=== PATIENT | female | born 1980 | race Caucasian/White ===

== ENCOUNTER 2017-10-14 15:02 | Emergency (ER) | payer MEDICARE, MEDICAID ==
[~2017-10-14] VITALS: Ht 167.6 cm; Wt 143.1 kg
[~2017-10-14 15:02] MED LIST: ALBU8.5H8 INH; AMIT100T PO; CARB200T PO; CELE200C; CHOL2000 PO; CYCL10TA50; DIVA250T4 PO; HYDR25TA11 PO; LORA-446; NAPR250T6 PO; POTA10TA6; POTA25PA PO; VIT D
[2017-10-14 16:36] LABS: HEMATOCRIT 40.2 % (34.6-47.8); HEMOGLOBIN 13.3 g/dL (11.7-16.4); WHITE BLOOD COUNT 8.2 x10^3/uL (3.4-10)
[2017-10-14 16:45] LABS: BLOOD UREA NITROGEN 8 mg/dL (7-18)
[2017-10-14 16:50] LABS: RAPID INFLUENZA A Negative (Negative); RAPID INFLUENZA B Negative (Negative)
[2017-10-14 16:57] VITALS: BP 112/64
== END 2017-10-14 17:16 | disposition home or self-care (01) ==
LOC: ED 15:39
DX: J45.909 Unspecified asthma, uncomplicated (principal); J20.8 Acute bronchitis due to other specified organisms; B96.89 Other specified bacterial agents as the cause of diseases classified elsewhere; F32.9 Major depressive disorder, single episode, unspecified; G40.909 Epilepsy, unspecified, not intractable, without status epilepticus; G89.29 Other chronic pain; M54.9 Dorsalgia, unspecified; Z90.49 Acquired absence of other specified parts of digestive tract
CPT/HCPCS: 36415; 71010; 80048; 82040; 85025; 87400; 99285

== ENCOUNTER 2017-11-26 21:45 | Emergency (ER) | payer MEDICARE, MEDICAID ==
[~2017-11-26] VITALS: Ht 167.6 cm; Wt 130.0 kg
[2017-11-26 21:49] VITALS: BP 127/68
[2017-11-26] MEDS ORDERED: SODIUM CHLORIDE FLUSH 10ML SYR IVF ONE (22:00)
[2017-11-26 22:19] LABS: BASOPHILS # (AUTO) 0.03 x10^3/uL (0-0.1); BASOPHILS % (AUTO) 0 % (0-1); EOSINOPHILS # (AUTO) 0.17 x10^3/uL (0-0.4); EOSINOPHILS % (AUTO) 2 % (1-7); LYMPHOCYTES # (AUTO) 2.14 x10^3/uL (1-3.4); LYMPHOCYTES % (AUTO) 23 % (22-44); MD NO; MEAN CORPUSCULAR HEMOGLOBIN 29.4 pg (27.0-34.8); MEAN CORPUSCULAR HGB CONC 33.7 g/dL (32.4-35.8); MEAN CORPUSCULAR VOLUME 87.3 fL (80-100); MEAN PLATELET VOLUME 7.6 fL (7.4-10.4); MONOCYTES # (AUTO) 0.82 x10^3/uL (0.2-0.8); MONOCYTES % (AUTO) 9 % (2-9); NEUTROPHILS # (AUTO) 6.33 x10^3/uL (1.8-6.8); NEUTROPHILS % (AUTO) 67 % (42-75); PLATELET COUNT 263 x10^3/uL (130-400); RED BLOOD COUNT 4.67 x10^6/uL (3.82-5.3); RED CELL DISTRIBUTION WIDTH 14.6 % (9.6-15.2)
[2017-11-26 22:29] LABS: ALANINE AMINOTRANSFERASE 15 U/L (12-78); ANION GAP 12 mmol/L (5-15); CALCIUM 8.2 mg/dL (8.5-10.1); CHLORIDE 107 mmol/L (98-107); CREATININE 0.76 mg/dL (0.55-1.02)
[2017-11-26 22:32] LABS: ALKALINE PHOSPHATASE 78 U/L (45-117); BILIRUBIN,TOTAL 0.2 mg/dL (0.2-1.0); TOTAL PROTEIN 7.2 g/dL (6.4-8.2)
== END 2017-11-26 23:00 | disposition home or self-care (01) ==
LOC: ED 22:13
DX: G40.909 Epilepsy, unspecified, not intractable, without status epilepticus (principal); Z88.0 Allergy status to penicillin; Z90.49 Acquired absence of other specified parts of digestive tract; J45.909 Unspecified asthma, uncomplicated
CPT/HCPCS: 36415; 80053; 80307; 85025; 93005; 99285

== ENCOUNTER 2017-12-10 19:22 | Emergency (ER) | payer MEDICARE, MEDICAID ==
[~2017-12-10] VITALS: Ht 172.7 cm; Wt 110.0 kg
[2017-12-10] MEDS ORDERED: SODIUM CHLORIDE 0.9% 1,000ML IVBOLUS ONE (20:00)
[2017-12-10] MEDS ORDERED: SODIUM CHLORIDE FLUSH 10ML SYR IVF ONE (20:00)
[2017-12-10 20:09] LABS: BASOPHILS # (AUTO) 0.02 x10^3/uL (0-0.1); BASOPHILS % (AUTO) 0 % (0-1); EOSINOPHILS # (AUTO) 0.23 x10^3/uL (0-0.4); EOSINOPHILS % (AUTO) 3 % (1-7); LYMPHOCYTES # (AUTO) 1.38 x10^3/uL (1-3.4); LYMPHOCYTES % (AUTO) 16 % (22-44); MD NO; MEAN CORPUSCULAR HGB CONC 32.8 g/dL (32.4-35.8); MEAN CORPUSCULAR VOLUME 88.4 fL (80-100); MEAN PLATELET VOLUME 7.8 fL (7.4-10.4); MONOCYTES % (AUTO) 8 % (2-9); NEUTROPHILS # (AUTO) 6.63 x10^3/uL (1.8-6.8); NEUTROPHILS % (AUTO) 74 % (42-75); PLATELET COUNT 237 x10^3/uL (130-400); RED BLOOD COUNT 4.66 x10^6/uL (3.82-5.3); RED CELL DISTRIBUTION WIDTH 14.6 % (9.6-15.2)
[2017-12-10 20:17] LABS: ALANINE AMINOTRANSFERASE 17 U/L (12-78); ALBUMIN 3.6 g/dL (3.4-5.0); ANION GAP 9 mmol/L (5-15); CALCIUM 7.9 mg/dL (8.5-10.1); CHLORIDE 105 mmol/L (98-107); CREATININE 0.76 mg/dL (0.55-1.02)
[2017-12-10 20:21] LABS: ALKALINE PHOSPHATASE 83 U/L (45-117); BILIRUBIN,TOTAL 0.2 mg/dL (0.2-1.0); TOTAL PROTEIN 7.3 g/dL (6.4-8.2)
[2017-12-10 22:21] VITALS: BP 123/80
[2017-12-10 23:12] LABS: AMPHETAMINE SCREEN, URINE Negative (Negative); BARBITURATE SCREEN, URINE Negative (Negative); BENZODIAZEPINE SCREEN, URINE Negative (Negative); CANNABINOID SCREEN, URINE Negative (Negative); COCAINE SCREEN, URINE Negative (Negative); METHADONE SCREEN, URINE Negative (Negative); OPIATE SCREEN, URINE Negative (Negative)
== END 2017-12-10 22:22 | disposition home or self-care (01) ==
LOC: ED 19:40
DX: G40.309 Generalized idiopathic epilepsy and epileptic syndromes, not intractable, without status epilepticus (principal); J45.909 Unspecified asthma, uncomplicated; Z90.49 Acquired absence of other specified parts of digestive tract
CPT/HCPCS: 36415; 80053; 80164; 80307; 85025; 96360; 99284; J7030

== ENCOUNTER 2018-02-07 19:25 | Emergency (ER) | payer MEDICARE, MEDICAID ==
[~2018-02-07] VITALS: Ht 167.6 cm; Wt 145.9 kg
[2018-02-07 19:27] VITALS: BP 136/94
[2018-02-07] MEDS ORDERED: DEXAMETHASONE 4 MG TABLET PO STA (19:58)
[2018-02-07] MEDS ORDERED: DEXAMETHASONE 4 MG TABLET ONE (19:59)
== END 2018-02-07 21:03 | disposition home or self-care (01) ==
LOC: ED 20:45
DX: J20.8 Acute bronchitis due to other specified organisms (principal); B97.89 Other viral agents as the cause of diseases classified elsewhere; J45.909 Unspecified asthma, uncomplicated; E66.9 Obesity, unspecified
CPT/HCPCS: 71046; 99284

== ENCOUNTER 2018-03-13 17:56 | Emergency (ER) | payer MEDICAID, MEDICARE ==
[~2018-03-13] VITALS: Ht 167.6 cm; Wt 140.6 kg
[2018-03-13 18:25] VITALS: BP 129/87
[2018-03-13] MEDS ORDERED: ALBUTEROL SULFATE 2.5 MG/3 ML ONE (19:34)
[2018-03-13] MEDS ORDERED: IBUP200C5 PO (19:52)
[2018-03-13] MEDS ORDERED: CHOL100011 PO (19:53)
== END 2018-03-13 21:34 | disposition home or self-care (01) ==
LOC: ED 21:28
DX: J06.9 Acute upper respiratory infection, unspecified (principal); B34.9 Viral infection, unspecified; G40.909 Epilepsy, unspecified, not intractable, without status epilepticus; J45.909 Unspecified asthma, uncomplicated; F32.9 Major depressive disorder, single episode, unspecified; Z88.0 Allergy status to penicillin; Z88.2 Allergy status to sulfonamides; Z88.1 Allergy status to other antibiotic agents; Z88.8 Allergy status to other drugs, medicaments and biological substances
CPT/HCPCS: 71046; 93005; 94640; 99284

== ENCOUNTER 2018-04-16 19:04 | Emergency (ER) | payer MEDICARE ==
[~2018-04-16] VITALS: Ht 167.6 cm; Wt 139.5 kg
[~2018-04-16 19:04] MED LIST changes: +CHOL100011 PO; +IBUP200C5 PO
[2018-04-16 19:11] VITALS: BP 130/91
[2018-04-16] MEDS ORDERED: KETOROLAC 30 MG/1 ML ONE (20:12)
[2018-04-16] MEDS ORDERED: KETOROLAC 30 MG/1 ML IM ONE (20:30)
== END 2018-04-16 21:00 | disposition home or self-care (01) ==
LOC: ED 20:45
DX: M25.571 Pain in right ankle and joints of right foot (principal); M25.561 Pain in right knee; G40.909 Epilepsy, unspecified, not intractable, without status epilepticus; J45.909 Unspecified asthma, uncomplicated; F20.9 Schizophrenia, unspecified; X50.1XXA Overexertion from prolonged static or awkward postures, initial encounter; Y93.89 Activity, other specified; Y92.480 Sidewalk as the place of occurrence of the external cause; Y99.8 Other external cause status
CPT/HCPCS: 73564; 73610; 96372; 99284; J1885

== ENCOUNTER 2018-04-24 21:01 | Emergency (ER) | payer MEDICARE ==
[~2018-04-24] VITALS: Ht 167.6 cm; Wt 138.3 kg
[2018-04-24 22:18] LABS: MEAN CORPUSCULAR HGB CONC 33.5 g/dL (32.4-35.8); MEAN CORPUSCULAR VOLUME 89.8 fL (80-100); MEAN PLATELET VOLUME 7.7 fL (7.4-10.4); PLATELET COUNT 262 x10^3/uL (130-400); RED BLOOD COUNT 4.13 x10^6/uL (3.82-5.3); RED CELL DISTRIBUTION WIDTH 14.3 % (9.6-15.2)
[2018-04-24 22:28] LABS: ALBUMIN 3.3 g/dL (3.4-5.0); ANION GAP 8 mmol/L (5-15); CHLORIDE 109 mmol/L (98-107); CREATININE 0.74 mg/dL (0.55-1.02)
[2018-04-24 22:34] VITALS: BP 111/77
[2018-04-24 22:46] LABS: BASOPHILS # (AUTO) 0.05 x10^3/uL (0-0.1); BASOPHILS % (AUTO) 0 % (0-1); EOSINOPHILS # (AUTO) 0.15 x10^3/uL (0-0.4); EOSINOPHILS % (AUTO) 1 % (1-7); LYMPHOCYTES # (AUTO) 1.85 x10^3/uL (1-3.4); LYMPHOCYTES % (AUTO) 13 % (22-44); MD SCAN; MONOCYTES # (AUTO) 1.61 x10^3/uL (0.2-0.8); MONOCYTES % (AUTO) 12 % (2-9); NEUTROPHILS # (AUTO) 10.12 x10^3/uL (1.8-6.8); NEUTROPHILS % (AUTO) 74 % (42-75)
== END 2018-04-24 23:02 | disposition home or self-care (01) ==
LOC: ED 21:26
DX: J02.0 Streptococcal pharyngitis (principal); D72.829 Elevated white blood cell count, unspecified; H92.02 Otalgia, left ear; E66.9 Obesity, unspecified; J45.909 Unspecified asthma, uncomplicated; Z90.89 Acquired absence of other organs; Z90.49 Acquired absence of other specified parts of digestive tract
CPT/HCPCS: 36415; 71046; 80048; 82040; 85025; 87880; 93005; 99285

== ENCOUNTER 2018-07-22 17:44 | Emergency (ER) | payer MEDICARE ==
[~2018-07-22] VITALS: Ht 167.6 cm; Wt 142.0 kg
[~2018-07-22 17:44] MED LIST changes: +IBUP-1623 PO; -IBUP200C5 PO
[2018-07-22 18:07] LABS: BASOPHILS % (AUTO) 0 % (0-1); EOSINOPHILS # (AUTO) 0.02 x10^3/uL (0-0.4); EOSINOPHILS % (AUTO) 0 % (1-7); LYMPHOCYTES % (AUTO) 5 % (22-44); MD NO; MEAN CORPUSCULAR HEMOGLOBIN 30.2 pg (27.0-34.8); MEAN CORPUSCULAR HGB CONC 34.1 g/dL (32.4-35.8); MEAN CORPUSCULAR VOLUME 88.6 fL (80-100); MEAN PLATELET VOLUME 7.9 fL (7.4-10.4); MONOCYTES # (AUTO) 0.24 x10^3/uL (0.2-0.8); MONOCYTES % (AUTO) 3 % (2-9); NEUTROPHILS # (AUTO) 7.14 x10^3/uL (1.8-6.8); NEUTROPHILS % (AUTO) 92 % (42-75); PLATELET COUNT 207 x10^3/uL (130-400); RED BLOOD COUNT 4.48 x10^6/uL (3.82-5.3); RED CELL DISTRIBUTION WIDTH 14.2 % (9.6-15.2)
[2018-07-22 18:19] LABS: ALBUMIN 3.6 g/dL (3.4-5.0); ANION GAP 10 mmol/L (5-15); CALCIUM 7.8 mg/dL (8.5-10.1); CHLORIDE 109 mmol/L (98-107); CREATININE 0.61 mg/dL (0.55-1.02)
[2018-07-22 19:15] VITALS: BP 118/66
== END 2018-07-22 19:27 | disposition home or self-care (01) ==
LOC: ED 18:02
DX: G40.409 Other generalized epilepsy and epileptic syndromes, not intractable, without status epilepticus (principal); J45.909 Unspecified asthma, uncomplicated; F32.9 Major depressive disorder, single episode, unspecified; Z90.49 Acquired absence of other specified parts of digestive tract; Z90.89 Acquired absence of other organs
CPT/HCPCS: 36415; 80048; 82040; 83605; 84703; 85025; 93005; 99285

== ENCOUNTER 2018-09-15 22:29 | Emergency (ER) | payer MEDICARE ==
[~2018-09-15] VITALS: Ht 167.6 cm; Wt 137.0 kg
[2018-09-15 22:33] VITALS: BP 132/96
== END 2018-09-15 23:53 | disposition home or self-care (01) ==
LOC: ED 22:49
DX: G89.29 Other chronic pain (principal); M54.5 Low back pain; J45.909 Unspecified asthma, uncomplicated
CPT/HCPCS: 99283

== ENCOUNTER 2019-03-04 16:03 | Emergency (ER) | payer MEDICARE, MEDICAID ==
[~2019-03-04] VITALS: Ht 167.6 cm; Wt 141.2 kg
[2019-03-04 16:06] VITALS: BP 129/82
== END 2019-03-04 17:49 | disposition home or self-care (01) ==
LOC: ED 17:43
DX: J02.9 Acute pharyngitis, unspecified (principal); G40.909 Epilepsy, unspecified, not intractable, without status epilepticus; E66.9 Obesity, unspecified; Z68.43 Body mass index [BMI] 50.0-59.9, adult; Z72.89 Other problems related to lifestyle; Z75.9 Unspecified problem related to medical facilities and other health care; Z90.49 Acquired absence of other specified parts of digestive tract; Z88.0 Allergy status to penicillin; Z88.2 Allergy status to sulfonamides; Z88.8 Allergy status to other drugs, medicaments and biological substances
CPT/HCPCS: 71046; 93005; 99283

== ENCOUNTER 2019-09-28 23:33 | Emergency (ER) | payer MEDICAID, MEDICARE ==
[~2019-09-28] VITALS: Ht 172.7 cm; Wt 135.0 kg
[~2019-09-28 23:33] MED LIST changes: +HYDR-826 PO; -HYDR25TA11 PO
[2019-09-28 23:36] VITALS: BP 134/72
[2019-09-29 01:34] LABS: HCG UR SG 1.015 (1.003-1.030)
== END 2019-09-29 02:26 | disposition home or self-care (01) ==
LOC: ED 09-29 01:07
DX: N91.2 Amenorrhea, unspecified (principal); Z72.9 Problem related to lifestyle, unspecified; J45.909 Unspecified asthma, uncomplicated; Z90.89 Acquired absence of other organs; Z90.49 Acquired absence of other specified parts of digestive tract
CPT/HCPCS: 81025; 99283